=== PATIENT | female | born 1935 | race Caucasian/White ===

== ENCOUNTER → 2016-07-20 | Outpatient (CLI) | payer MEDICARE, BC ==
[~2016-07-20] MED LIST: ACET-2321 PO; ASPI-917 PO; BIOT25008 PO; DOCU-168 PO; MAGN400T40 PO; METF-206 PO; METO25TA41 PO; MULT-543 PO; POLY17PO18 PO; PRAV40TA46 PO; PRED20TA PO; TRAM50TA53 PO
== END ==
LOC: WC.BC 08:08
DX: Z12.31 Encounter for screening mammogram for malignant neoplasm of breast (principal); N64.59 Other signs and symptoms in breast; Z80.3 Family history of malignant neoplasm of breast
CPT/HCPCS: 77063; G0202